=== PATIENT | female | born 1995 | race Two or more races ===

== ENCOUNTER 2024-01-10 17:17 | Emergency (ER) | payer OTHER ==
[~2024-01-10] VITALS: Ht 154.9 cm; Wt 74.8 kg
[2024-01-10] MEDS ORDERED: FOLIC ACID20 MG (17:48)
[2024-01-10 18:13] LABS: HEMATOCRIT 34.8 % (36.0-45.00); HEMOGLOBIN 11.8 g/dL (12.0-15.00); MEAN CELL VOLUME 89.4 fL (80.00-100.00); MEAN CORPUSCULAR HEMOGLOBIN 30.3 pg (27.00-32.0); MEAN CORPUSCULAR HGB CONC 33.9 g/dl (32.0-36.0); PLATELET COUNT 252 K/uL (150-450); RED CELL DISTRIBUTION WIDTH 12.9 % (11.5-14.5)
== END 2024-01-10 21:08 | disposition home or self-care (01) ==
LOC: ER 17:19
PROVIDERS: Emergency Medicine
DX: O20.9 Hemorrhage in early pregnancy, unspecified (principal); Z3A.09 9 weeks gestation of pregnancy

== ENCOUNTER 2024-06-15 10:16 | Emergency (ER) | payer OTHER ==
[~2024-06-15] VITALS: Ht 154.9 cm; Wt 77.1 kg
[~2024-06-15 10:16] MED LIST: FOLIC ACID20 MG
[2024-06-15 11:13] LABS: HEMATOCRIT 39.6 % (36.0-45.00); HEMOGLOBIN 13.6 g/dL (12.0-15.00); MEAN CELL VOLUME 87.6 fL (80.00-100.00); MEAN CORPUSCULAR HEMOGLOBIN 30.1 pg (27.00-32.0); MEAN CORPUSCULAR HGB CONC 34.4 g/dl (32.0-36.0); PLATELET COUNT 260 K/uL (150-450); RED BLOOD COUNT 4.53 M/uL (4.00-6.00); RED CELL DISTRIBUTION WIDTH 13.4 % (11.5-14.5)
[2024-06-15 11:29] LABS: PH,URINE 5.5 (5.0-8.0); URINE APPEARANCE Clear; URINE BILIRRUBIN Negative (NEGATIVE); URINE BLOOD Large; URINE COLOR Yellow; URINE EPITHELIAL CELLS 28.9 uL (0.0-38.8); URINE GLUCOSE Negative (NEGATIVE); URINE KETONE Trace (NEGATIVE); URINE LEUKOCYTE Small; URINE NITRATE Negative; URINE PROTEIN Trace (NEGATIVE); URINE RBC 325.6 uL (0.0-20.8); URINE WBC 88.1 uL (0.0-23.2)
[2024-06-15 11:41] LABS: URINE CAST 0.14 uL (0.0-1.40)
[2024-06-15 11:46] LABS: URINE EPITHELIAL CELLS 0-4 /HPF
[2024-06-15 14:18] VITALS: BP 101/69; O2SAT 100
== END 2024-06-15 14:19 | disposition home or self-care (01) ==
LOC: ER 10:19
PROVIDERS: General Practice
DX: O20.9 Hemorrhage in early pregnancy, unspecified (principal); Z3A.09 9 weeks gestation of pregnancy

== ENCOUNTER 2024-07-01 17:39 | Inpatient (IN) | payer OTHER ==
[~2024-07-01] VITALS: Ht 152.4 cm; Wt 77.1 kg
--- NOTE | 2024-07-01 18:24 | NUR ---
PTE ALERTA Y ORIENTADA X3 REFIERE DOLOR PELVICO Y QUE FUE ENVIADA PARA EL HOSPITAL POR EL DR. NATASHA LINARES. REFIERE QUE TUVO UN APOTA EL 06/15/24. SE MIDEN S/V Y SE UBICA.
[2024-07-01] MEDS ORDERED: MEPERIDINE HCL/PF 50 MG/ML VIAL IM ONE (18:45)
[2024-07-01] MEDS ORDERED: 0.9 % SODIUM CHLORIDE 1,000 ML IV ONE (18:45)
[2024-07-01] MEDS ORDERED: FAMOtidine 10 MG/ML (4ML VIAL) IV ONE (18:45)
[2024-07-01] MEDS ORDERED: PIPERACILLIN/TAZOBACTAM SODIUM 3.375 GM VIAL IV ONE ×2 (18:45→19:40)
[2024-07-01] MEDS ORDERED: FAMOTIDINE/PF 20 MG/2 ML VIAL ONE (19:40)
--- NOTE | 2024-07-01 20:05 | NUR ---
PTE ALERTA Y ORIENTADA X3 ES EVALUADA POR LA DRA. BOOGIE. SE ORIENTA SOBRE TRATAMIENTO, VERBALIZA ENTENDER. SE CANALIZA, SE COLECTAN MUESTRAS DE LAB Y SE ADMINISTRA MEDICAMENTO CONSTANTINO ORDEN EMDCIA BAJO MEDIDAS ASEPTICAS. SE NOTIFICA CT PENDIENTE.
[2024-07-01 20:12] LABS: HEMATOCRIT 34.1 % (36.0-45.00); HEMOGLOBIN 11.9 g/dL (12.0-15.00); MEAN CELL VOLUME 87.7 fL (80.00-100.00); MEAN CORPUSCULAR HEMOGLOBIN 30.4 pg (27.00-32.0); MEAN CORPUSCULAR HGB CONC 34.7 g/dl (32.0-36.0); PLATELET COUNT 268 K/uL (150-450); RED BLOOD COUNT 3.89 M/uL (4.00-6.00); RED CELL DISTRIBUTION WIDTH 13.3 % (11.5-14.5)
[2024-07-01 20:25] LABS: INR 1.01; PARTIAL THROMBOPLASTIN TIME 27.3 SECONDS (22.0-34.0)
[2024-07-01 20:30] LABS: BILIRUBIN TOTAL 0.87 mg/dL (0.3-1.2); CALCIUM 9.3 mg/dL (8.5-10.1); CREATININE SERUM 0.73 mg/dL (0.55-1.02); GFR 93.61; GLOBULINA 4.5 G/DL (2.4-3.5); POTASSIUM 3.66 mEq/L (3.5-5.1); TOTAL PROTEIN 8.5 gm/dL (6.4-8.2)
[2024-07-01 20:38] LABS: URINE APPEARANCE Cloudy; URINE BILIRRUBIN Negative (NEGATIVE); URINE BLOOD Large; URINE COLOR Dark Yellow; URINE GLUCOSE Negative (NEGATIVE); URINE KETONE Trace (NEGATIVE); URINE LEUKOCYTE Small; URINE NITRATE Negative; URINE PROTEIN 30 (NEGATIVE)
[2024-07-01 20:42] LABS: URINE BACTERIA 2155.4 uL (0.0-1933); URINE EPITHELIAL CELLS 23.7 uL (0.0-38.8); URINE RBC 230.8 uL (0.0-20.8)
[2024-07-01 21:05] LABS: URINE CAST 0.88 uL (0.0-1.40); URINE CRYSTALS FEW /HPF; URINE MUCUS HEAVY
--- NOTE | 2024-07-01 23:19 | NUR ---
PTE ALERTA Y ORIENTADA X3. SE REALIZAN V/S Y SE RE UBICA EN CUBICULO 13.
[2024-07-02] MEDS ORDERED: CEFAZOLIN SODIUM 1,000 MG VIAL ONE (00:02)
[2024-07-02] MEDS ORDERED: POVIDONE-IODINE 118 ML BOTT TOP ONE (00:02)
[2024-07-02] MEDS ORDERED: SUGAMMADEX SODIUM 200 MG/2 ML VIAL IV ONE (02:15)
[2024-07-02] MEDS ORDERED: FAMOTIDINE/PF 20 MG/2 ML VIAL ONE (02:32)
[2024-07-02] MEDS ORDERED: PROMETHAZINE HCL 50 MG/ML AMPUL IM PRN (02:45)
[2024-07-02] MEDS ORDERED: MEPERIDINE HCL/PF 50 MG/ML VIAL IM PRN (02:45)
[2024-07-02] MEDS ORDERED: MORPHINE SULFATE 4 MG/ML VIAL IV ONE (03:40)
[2024-07-02 04:43] VITALS: BP 105/71
[2024-07-02 04:46] VITALS: O2SAT 100
[2024-07-02] MEDS ORDERED: PROMETHAZINE HCL 25 MG/ML AMPUL ONE (07:49)
[2024-07-02 08:00] VITALS: BP 97/63
[2024-07-02 10:06] LABS: HEMATOCRIT 31.5 % (36.0-45.00); HEMOGLOBIN 10.9 g/dL (12.0-15.00); MEAN CELL VOLUME 87.9 fL (80.00-100.00); MEAN CORPUSCULAR HEMOGLOBIN 30.4 pg (27.00-32.0); MEAN CORPUSCULAR HGB CONC 34.6 g/dl (32.0-36.0); PLATELET COUNT 245 K/uL (150-450); RED BLOOD COUNT 3.58 M/uL (4.00-6.00); RED CELL DISTRIBUTION WIDTH 13.1 % (11.5-14.5)
[2024-07-02 16:00] VITALS: BP 101/63
[2024-07-02 20:19] LABS: HEMOGLOBIN 11.6 g/dL (12.0-15.00); MEAN CELL VOLUME 89.7 fL (80.00-100.00); MEAN CORPUSCULAR HEMOGLOBIN 30.5 pg (27.00-32.0); PLATELET COUNT 212 K/uL (150-450); RED BLOOD COUNT 3.79 M/uL (4.00-6.00); RED CELL DISTRIBUTION WIDTH 13.6 % (11.5-14.5)
[2024-07-03 00:38] VITALS: BP 98/64
[2024-07-03 05:07] VITALS: BP 96/60
[2024-07-03 08:00] VITALS: BP 100/67
[2024-07-03] MEDS ORDERED: OxyCODONE HCL/APAP UD (PERCOCET) PO PRN (08:00)
[2024-07-03] MEDS ORDERED: DOCUSATE SODIUM 100MG CAP PO SCH (09:00)
[2024-07-03] MEDS ORDERED: SIMETHICONE 125 MG CAPSULE PO SCH (09:00)
[2024-07-03] MEDS ORDERED: IBUprofen 600 MG TABLET PO PRN (09:45)
[2024-07-03 14:57] VITALS: BP 103/70
[2024-07-03 19:25] VITALS: BP 106/69
[2024-07-04 00:47] VITALS: BP 96/62
[2024-07-04 05:31] VITALS: BP 93/61
[2024-07-04 07:44] VITALS: BP 90/60
== END 2024-07-04 09:12 | disposition home or self-care (01) | DRG 819 ==
LOC: ER 17:42 → SEC-K 07-02 00:51 → OB/GYN 07-02 00:51
PROVIDERS: General Practice; ADMIT Obstetrics & Gynecology; ATTEND Obstetrics & Gynecology
PROC: 0UT60ZZ Resection of Left Fallopian Tube, Open Approach (ICD-10-PCS; 2024-07-02)
PROC: 10D20ZZ Extraction of Products of Conception, Ectopic, Open Approach (ICD-10-PCS; principal; 2024-07-02 00:12)
DX: O00.102 Left tubal pregnancy without intrauterine pregnancy (principal); R10.9 Unspecified abdominal pain; R10.2 Pelvic and perineal pain